=== PATIENT | male | born 1960 | race Caucasian/White ===

== ENCOUNTER 2016-04-04 10:44 | Emergency (ER) | payer OTHER ==
[~2016-04-04] VITALS: Ht 172.7 cm; Wt 105.0 kg
[2016-04-04 13:43] LABS: HEMATOCRIT 42.6 % (38.0-50.0); MCH 29.5 PG (29.0-34.0); MCHC 35.2 G/DL (30.0-36.0); MCV 83.7 FL (86-99); MEAN PLAT.VOLUME 9.6 uM^3 (9.0-12.4); PLATELET COUNT 267 K/uL (156-360); RBC DIS.WIDTH-CV 13.2 % (11.8-14.6); RBC DIS.WIDTH-SD 39.7 % (39-53); RED BLOOD COUNT 5.09 M/uL (4.00-5.50); WHITE BLOOD COUNT 6.6 K/uL (4.1-10.2)
[2016-04-04 13:49] LABS: CHLORIDE 105 mEq/L (99-109); POTASSIUM 4.2 mEq/L (3.7-5.4); SODIUM 141 mEq/L (136-147)
[2016-04-04 13:51] LABS: GLUCOSE 103 mg/dL (70-99)
[2016-04-04 13:53] LABS: ANION GAP 12 MEQ/L (2-14)
[2016-04-04 13:55] LABS: GFR ESTIMATE (CALCULATED) > 59 mL/min/
[2016-04-04 13:56] LABS: UREA NITROGEN (BUN) 11 mg/dL (9-23)
[2016-04-04 13:58] LABS: TROP-I INTERPRETATION NEGATIVE; TROPONIN-I < 0.01 ng/mL (0.0-0.30)
[2016-04-04 15:36] LABS: D-DIMER ELISA 0.29 mg/L FEU (< 0.57)
[2016-04-04 15:59] LABS: TROP-I INTERPRETATION NEGATIVE; TROPONIN-I < 0.01 ng/mL (0.0-0.30)
[2016-04-04 17:38] VITALS: BP 134/91
== END 2016-04-04 17:57 | disposition home or self-care (01) ==
LOC: EME 10:44
PROVIDERS: Emergency Medicine; Physician Assistant
DX: R07.9 Chest pain, unspecified (principal); M54.2 Cervicalgia; M54.89 Other dorsalgia; M25.512 Pain in left shoulder; I10 Essential (primary) hypertension; R11.0 Nausea
CPT/HCPCS: 71020; 71275; 80048; 83735; 83880; 84484; 85027; 85379; 93005; 99281; 99285